=== PATIENT | female | born 1945 | race Caucasian/White ===

== ENCOUNTER 2018-06-25 15:48 | Inpatient (IN) | payer OTHER ==
--- NOTE | 2018-06-25 16:41 | NUR ---
PT ARRIVED VIA WHEELCHAIR WITH FAMILY AT BEDSIDE, HISTORY OBTAINED FROM PT AND FAMILY. CALL LIGHT PLACED IN REACH, WILL CONTINUE TO MONITOR AND FOLLOW PLAN OF CARE.
--- NOTE | 2018-06-25 17:08 | NUR ---
IV STARTED TO LEFT FA AND IS S/L.
[2018-06-25] MEDS ORDERED: ANORO ELLIPTA1 EACH INH (17:09)
[2018-06-25] MEDS ORDERED: BAYER CHEWABLE81 MG PO (17:09)
[2018-06-25 17:10] LABS: BASOPHILS 0.1 % (0-2); EOSINOPHILS 1.2 % (0-7); IMMATURE GRANULOCYTES 0.3 % (0-5); LYMPHOCYTES 13.9 % (15-50); MCH 29.3 pg (26.0-34.0); MCHC 32.5 g/dL (31.0-37.0); MCV 90.1 fL (80.0-100.0); MEAN PLATELET VOLUME 9.8 fL (7.4-10.4); MONOCYTES 8.7 % (2-11); NEUTROPHILS 75.8 % (40-80); PLATELET COUNT 274 10x3/uL (130-400); RBC 4.44 10x6/uL (4.00-5.40); RDW 12.7 % (11.5-14.5); WBC 10.5 10x3/uL (4.8-10.8)
[2018-06-25] MEDS ORDERED: CELEXA40 MG PO (17:10)
[2018-06-25] MEDS ORDERED: NEURONTIN 300300 MG PO (17:10)
[2018-06-25] MEDS ORDERED: LIPITOR80 MG PO (17:10)
[2018-06-25] MEDS ORDERED: LISINOPRIL20 MG PO (17:11)
[2018-06-25] MEDS ORDERED: IPRAT-ALBUT 0.5-3 ML UPD (17:11)
[2018-06-25] MEDS ORDERED: ALBUTEROL SULF8.5 GM INH (17:13)
[2018-06-25 17:53] LABS: APTT 28.6 SECONDS (22.8-39.4); INR 1.04 (0.85-1.17); PROTIME 13.1 SECONDS (11.6-15.0)
[2018-06-25 18:36] LABS: ALBUMIN 2.5 g/dL (3.4-5.0); ALKALINE PHOSPHATASE 101 U/L (46-116); ALT (SGPT) 15 U/L (10-68); BILIRUBIN - TOTAL 0.65 mg/dL (0.2-1.3); CALCIUM 9.6 mg/dL (8.5-10.1); CARBON DIOXIDE 34.2 mmol/L (21.0-32.0); CHLORIDE - SERUM 99 mmol/L (98-107); CREATININE - SERUM 0.5 mg/dL (0.6-1.3); GLUCOSE 85 mg/dL (74-106); POTASSIUM - SERUM 4.3 mmol/L (3.5-5.1); PROTEIN - SERUM 6.8 g/dL (6.4-8.2); UREA NITROGEN 12 mg/dL (7-18); eGFR NON AFRICAN AMERICAN > 90 mL/min (90-120)
[2018-06-25 19:12] LABS: CALC OSMOLALITY 277 mosm/kg (275-300); SODIUM 140 mmol/L (136-145)
--- NOTE | 2018-06-25 19:38 | NUR ---
PT BACK FROM CT. PT IS AAO, PLACED TELEMETRY ON PT. PT HAS NO S/S OF DISTRESS. DENIES ANY NEEDS. RIGHT ARM RESTING ON A PILLOW. 5L O2 HIGH FLOW NC. STATES WEARS 4L AT HOME. PT BEDALARM ON AND ACTIVE. VERBALIZED UNDERSTANDING TO CALL WHEN NEEDS ASSIST TO PREVENT FALLS. PT WILL CALL FOR ASSIST WHEN NEEDED. NAME AND DATE PLACED ON BOARD. WILL CPOC
[2018-06-25 20:00] VITALS: BP 127/76
--- NOTE | 2018-06-25 20:48 | NUR ---
[employer] REPORTED THAT PT WENT FROM A NORMAL SR TO FLUTTER BACK TO NORMAL SR.
--- NOTE | 2018-06-25 20:50 | NUR ---
NO CHANGE IN PT WHEN CHANGED FROM SR TO FLUTTER TO SR. PT DENIES ANY SYMPTOMS. PT WILL CALL FOR ASSIST WHEN NEEDED. [facility]
--- NOTE | 2018-06-25 21:58 | NUR ---
NIGHT MEDICATIONS GIVEN. PT VERBALIZED UNDERSTANDING OF MEDICATIONS. PT REFUSES NEUROTIN. STATES SHE DOESNT TAKE THEM. LIPITOR GIVEN. PT DENIES ANY NEEDS. WILL CPOC
[2018-06-26] VITALS: BP 111/61
[2018-06-26 04:00] VITALS: BP 115/76
[2018-06-26 05:36] LABS: BASOPHILS 0.1 % (0-2); EOSINOPHILS 2.8 % (0-7); HEMATOCRIT 39.1 % (36.0-48.0); HEMOGLOBIN 12.3 g/dL (12-16); IMMATURE GRANULOCYTES 0.1 % (0-5); LYMPHOCYTES 11.2 % (15-50); MCH 28.7 pg (26.0-34.0); MCHC 31.5 g/dL (31.0-37.0); MCV 91.1 fL (80.0-100.0); MONOCYTES 9.4 % (2-11); NEUTROPHILS 76.4 % (40-80); PLATELET COUNT 256 10x3/uL (130-400); RBC 4.29 10x6/uL (4.00-5.40); RDW 12.8 % (11.5-14.5); WBC 7.9 10x3/uL (4.8-10.8)
[2018-06-26 06:06] LABS: ALBUMIN 2.2 g/dL (3.4-5.0); ALKALINE PHOSPHATASE 90 U/L (46-116); ALT (SGPT) 15 U/L (10-68); BILIRUBIN - TOTAL 0.41 mg/dL (0.2-1.3); CALC OSMOLALITY 282 mosm/kg (275-300); CALCIUM 9.3 mg/dL (8.5-10.1); CARBON DIOXIDE 36.7 mmol/L (21.0-32.0); CHLORIDE - SERUM 102 mmol/L (98-107); CREATININE - SERUM 0.6 mg/dL (0.6-1.3); GLUCOSE 97 mg/dL (74-106); PROTEIN - SERUM 5.9 g/dL (6.4-8.2); SODIUM 142 mmol/L (136-145); UREA NITROGEN 12 mg/dL (7-18); eGFR NON AFRICAN AMERICAN > 90 mL/min (90-120)
[2018-06-26 06:08] LABS: POTASSIUM - SERUM 3.2 mmol/L (3.5-5.1)
--- NOTE | 2018-06-26 06:54 | NUR ---
PT MORNING LOVENOX AND PROTONIX GIVEN. K DUR GIVEN FOR 3.2 POTASSIUM. PT VERBALIZED UNDERSTANDING OF MEDICATIONS. WILL CPOC
[2018-06-26 08:06] VITALS: BP 112/58
--- NOTE | 2018-06-26 10:29 | NUR ---
PT C/O PAIN IN RIGHT HIP, PER FLORENCE VALVERDE APRN GIVE NORCO [id number]. ORDER NOTED.
[2018-06-26 11:45] VITALS: BP 140/76
--- NOTE | 2018-06-26 12:46 | NUR ---
PER DR ROSA MAY GIVE NICOTINE PATCH. ORDER NOTED.
[2018-06-26 15:16] VITALS: BMI 25.1
[2018-06-26 16:04] VITALS: BMI 25.1
--- NOTE | 2018-06-26 19:35 | NUR ---
AWAKE AND FULLY ORIENTED ALERT WITH CALL LIGHT IN REACH BED IS LOW AND LOCKED SL TO LEFT FA IS WNL 3L/NC DENIES NEEDS AT THIS TIME
[2018-06-26 20:00] VITALS: BP 117/54
--- NOTE | 2018-06-27 00:29 | NUR ---
NPO FOR PROCEDURE IN AM
[2018-06-27 04:00] VITALS: BP 108/70
[2018-06-27 05:43] LABS: BASOPHILS 0.1 % (0-2); EOSINOPHILS 2.6 % (0-7); HEMATOCRIT 39.1 % (36.0-48.0); HEMOGLOBIN 12.3 g/dL (12-16); IMMATURE GRANULOCYTES 0.4 % (0-5); LYMPHOCYTES 14.9 % (15-50); MCH 28.9 pg (26.0-34.0); MCHC 31.5 g/dL (31.0-37.0); MONOCYTES 10.8 % (2-11); NEUTROPHILS 71.2 % (40-80); PLATELET COUNT 248 10x3/uL (130-400); RBC 4.25 10x6/uL (4.00-5.40); RDW 12.7 % (11.5-14.5)
[2018-06-27 05:58] LABS: ALBUMIN 2.1 g/dL (3.4-5.0); ALKALINE PHOSPHATASE 88 U/L (46-116); ALT (SGPT) 12 U/L (10-68); BILIRUBIN - TOTAL 0.31 mg/dL (0.2-1.3); CALC OSMOLALITY 280 mosm/kg (275-300); CALCIUM 9.4 mg/dL (8.5-10.1); CHLORIDE - SERUM 102 mmol/L (98-107); CREATININE - SERUM 0.6 mg/dL (0.6-1.3); GLUCOSE 79 mg/dL (74-106); PROTEIN - SERUM 5.9 g/dL (6.4-8.2); SODIUM 142 mmol/L (136-145); UREA NITROGEN 10 mg/dL (7-18); eGFR NON AFRICAN AMERICAN > 90 mL/min (90-120)
[2018-06-27 05:59] LABS: POTASSIUM - SERUM 4.8 mmol/L (3.5-5.1)
[2018-06-27 07:44] VITALS: BP 159/128
[2018-06-27 11:22] VITALS: BP 124/70
[2018-06-27] MEDS ORDERED: NORCO-10 PO (18:42)
[2018-06-27] MEDS ORDERED: HYDROCODON-ACE1 EAC7 PO (18:53)
--- NOTE | 2018-06-27 20:11 | NUR ---
DISCHARGE INSTRUCTIONS EXPLAINED TO PT. PT STATES UNDERSTANDING. LEFT FA PIV REMOVED. GAUZE APPLIED. PT LEFT FLOOR BY WHEELCHAIR TO PERSONAL VEHICLE.
== END 2018-06-27 20:11 | disposition home health service (06) | DRG 166 ==
LOC: D.SDCHOLD 15:48 → D.M2 15:48
PROVIDERS: Family Medicine; Internal Medicine Nephrology; Internal Medicine Pulmonary Disease; ADMIT Family Medicine Adult Medicine; ATTEND Family Medicine Adult Medicine
PROC: 0B9L8ZX Drainage of Left Lung, Via Natural or Artificial Opening Endoscopic, Diagnostic (ICD-10-PCS; 2018-06-27)
PROC: 0B928ZX Drainage of Carina, Via Natural or Artificial Opening Endoscopic, Diagnostic (ICD-10-PCS; 2018-06-27)
PROC: 0B938ZX Drainage of Right Main Bronchus, Via Natural or Artificial Opening Endoscopic, Diagnostic (ICD-10-PCS; 2018-06-27)
PROC: 0BB28ZX Excision of Carina, Via Natural or Artificial Opening Endoscopic, Diagnostic (ICD-10-PCS; 2018-06-27)
PROC: 0BD38ZX Extraction of Right Main Bronchus, Via Natural or Artificial Opening Endoscopic, Diagnostic (ICD-10-PCS; principal; 2018-06-27 13:50)
DX: C34.90 Malignant neoplasm of unspecified part of unspecified bronchus or lung (principal); J96.21 Acute and chronic respiratory failure with hypoxia; J15.6 Pneumonia due to other Gram-negative bacteria; I82.621 Acute embolism and thrombosis of deep veins of right upper extremity; C78.7 Secondary malignant neoplasm of liver and intrahepatic bile duct; C79.70 Secondary malignant neoplasm of unspecified adrenal gland; I10 Essential (primary) hypertension; K21.9 Gastro-esophageal reflux disease without esophagitis; J43.9 Emphysema, unspecified; Z87.891 Personal history of nicotine dependence